=== PATIENT | female | born 1965 | race Caucasian/White ===

== ENCOUNTER 2017-08-12 13:16 | Outpatient (CLI) | payer OTHER | END 2017-08-12 21:24 | disposition home or self-care (01) | LOC: SMA 13:16 | PROVIDERS: ATTEND Specialist | DX: Z12.31 Encounter for screening mammogram for malignant neoplasm of breast (principal) | CPT/HCPCS: G0202 ==

== ENCOUNTER 2018-08-23 11:05 | Outpatient (CLI) | payer OTHER | END 2018-08-23 18:28 | disposition home or self-care (01) | LOC: SMA 11:05 | PROVIDERS: ATTEND Specialist | DX: Z12.31 Encounter for screening mammogram for malignant neoplasm of breast (principal) | CPT/HCPCS: 77067 ==

== ENCOUNTER 2019-09-12 13:46 | Outpatient (CLI) | payer OTHER | END 2019-09-12 21:22 | disposition home or self-care (01) | LOC: SMA 13:46 | PROVIDERS: ATTEND Specialist | DX: Z12.31 Encounter for screening mammogram for malignant neoplasm of breast (principal) | CPT/HCPCS: 77067 ==

== ENCOUNTER 2020-04-02 09:01 | Outpatient (CLI) | payer OTHER ==
[2020-04-02] MEDS ORDERED: GADOBENATE DIMEGLUMINE 529 MG/ML, 15 ML VIAL IV ONE (09:58)
== END 2020-04-02 20:00 | disposition home or self-care (01) ==
LOC: SMI 09:01
PROVIDERS: ATTEND Specialist
DX: R19.00 Intra-abdominal and pelvic swelling, mass and lump, unspecified site (principal); M47.817 Spondylosis without myelopathy or radiculopathy, lumbosacral region; R10.2 Pelvic and perineal pain
CPT/HCPCS: 72197; 74183; A9577

== ENCOUNTER 2020-04-11 11:23 | Day surgery (SDC) | payer OTHER, SELFPAY ==
[2020-04-07 10:03] LABS: EOSINOPHILS # (AUTO) 0.1 K/uL (0.0-0.4); EOSINOPHILS % (AUTO) 2.3 % (0.0-4.0); HEMATOCRIT 39.8 % (36-48); HEMOGLOBIN 13.8 g/dL (12.0-16.0); LYMPHOCYTES # (AUTO) 1.6 K/uL (1.0-5.5); LYMPHOCYTES % (AUTO) 32.4 % (20.5-51.5); MEAN CORPUSCULAR HEMOGLOBIN 34 pg (27-31); MEAN CORPUSCULAR HGB CONC 35 % (32-36); MEAN CORPUSCULAR VOLUME 98 fL (79.0-98.0); MONOCYTES # (AUTO) 0.4 K/uL (0.0-1.0); MONOCYTES % (AUTO) 8.8 % (1.7-9.3); NEUTROPHILS # (AUTO) 2.8 K/uL (1.8-7.7); NEUTROPHILS % (AUTO) 55.5 % (40.0-70.0); PLATELET COUNT (AUTO) 294 K/uL (130-430); RED BLOOD CELL COUNT(AUTO) 4.05 MIL/uL (4.2-6.2); RED CELL DISTRIBUTION WIDTH 12.5 % (9.0-15.0); WHITE BLOOD COUNT (AUTO) 5.1 K/uL (4.8-10.8)
[2020-04-07 10:14] LABS: BILIRUBIN,URINE NEGATIVE (NEGATIVE); BLOOD, URINE NEGATIVE (NEGATIVE); CLARITY/URINE CLEAR (CLEAR); COLOR,URINE YELLOW (YELLOW); GLUCOSE,URINE NEGATIVE (NEGATIVE); KETONES,URINE NEGATIVE (NEGATIVE); LEUKOCYTE ESTERASE ,URINE NEGATIVE (NEGATIVE); NITRITE, URINE NEGATIVE (NEGATIVE); PROTEIN URINE NEGATIVE (NEGATIVE); UROBILINOGEN,URINE 0.2 (0.2-1.0)
[2020-04-07 10:18] LABS: HCG,QUAL RESULT NEGATIVE (NEGATIVE)
[2020-04-11] VITALS (9 sets, daily range): BP systolic 123–153
[~2020-04-11] VITALS: Ht 167.6 cm; Wt 72.6 kg
[2020-04-11] MEDS ORDERED: ROCURONIUM BROMIDE 10 MG/ML (ZEMURON) IV ONE (13:40)
[2020-04-11] MEDS ORDERED: CEFAZOLIN 2 GM IVPB PREMIX 50 ML IV ONE (13:40)
[2020-04-11] MEDS ORDERED: NEOSTIGMINE METHYLSULFATE 1 MG/ML, 10 ML VIAL IVP ONE (13:40)
[2020-04-11] MEDS ORDERED: SUCCINYLCHOLINE CHLORIDE 20 MG/ML(QUELICIN) IVP ONE (13:40)
[2020-04-11] MEDS ORDERED: PROPOFOL 200MG/ 20ML VIAL (DIPRIVAN) IV ONE (13:40)
[2020-04-11] MEDS ORDERED: PHENYLEPHRINE HCL 10 MG/ML VIAL (NEOSYNEPHRINE) IV ONE (13:40)
[2020-04-11] MEDS ORDERED: GLYCOPYRROLATE 0.2 MG/ML VIAL IJ ONE (13:40)
[2020-04-11] MEDS ORDERED: WATER FOR IRRIGATION,STERILE 1,000 ML IRRIG.SOLN IR ONE (13:40)
[2020-04-11] MEDS ORDERED: ONDANSETRON HCL 4 MG/2 ML VIAL IVP ONE (13:40)
[2020-04-11] MEDS ORDERED: fentaNYL CITRATE 250 MCG/5 ML AMP IV ONE (13:40)
[2020-04-11] MEDS ORDERED: MIDAZOLAM HCL 5 MG/5 ML VIAL IVP ONE (13:40)
[2020-04-11] MEDS ORDERED: ROPIVACAINE HCL/PF 0.2% EPIDURAL 100 ML PLAST..BAG EP ONE (13:40)
[2020-04-11] MEDS ORDERED: BUPIVACAINE /PF 0.5% 30 ML VIAL INJ ONE (13:40)
[2020-04-11] MEDS ORDERED: SEVOFLURANE 15 MIN GAS INH ONE (13:40)
[2020-04-11] MEDS ORDERED: NS IRRIG SOLN 1000 ML IR ONE (13:40)
[2020-04-11] MEDS ORDERED: hydrALAZINE HCL 20 MG/ML VIAL IV PRN (14:30)
[2020-04-11] MEDS ORDERED: METOCLOPRAMIDE HCL 10 MG/2 ML VIAL IVP PRN (14:30)
[2020-04-11] MEDS ORDERED: HYDROmorphone 1 MG INJ. 1 MG/ML AMPUL IVP PRN ×2 (14:30→17:30)
[2020-04-11] MEDS ORDERED: ONDANSETRON HCL 4 MG/2 ML VIAL IVP PRN (15:15)
[2020-04-11] MEDS ORDERED: HYDROcodone/ACETAMIN 5-325 MG TAB (NORCO/ VICODIN) PO PRN (15:15)
[2020-04-11] MEDS ORDERED: OXYCODONE/ACETAMINOPHEN 5-325 TABLET PO PRN ×2 (15:15)
[2020-04-11] MEDS ORDERED: HYDROmorphone 1 MG INJ. 1 MG/ML AMPUL ONE ×2 (16:12→18:47)
[2020-04-11] MEDS: NACL 0.9% 1,000 ML IV SCH (18:52)
[2020-04-12] VITALS: BP_SYST 139
[2020-04-12] MEDS: NACL 0.9% 1,000 ML IV SCH (04:53)
[2020-04-12 08:30] VITALS: BP_SYST 171
[2020-04-12] MEDS: HYDROmorphone 2 MG/ML VIAL IVP PRN ×2 (09:59→14:24)
[2020-04-12 12:49] VITALS: BP_SYST 143
[2020-04-12 16:50] VITALS: BP_SYST 130
[2020-04-12 20:26] VITALS: BP_SYST 155
== END 2020-04-12 21:35 | disposition home or self-care (01) ==
LOC: SDS 11:23 → SMU 11:24 → SDS 04-12 21:35
PROVIDERS: ATTEND Specialist
DX: R10.2 Pelvic and perineal pain (principal); N80.0 Endometriosis of uterus; D25.2 Subserosal leiomyoma of uterus; R19.00 Intra-abdominal and pelvic swelling, mass and lump, unspecified site; Z79.899 Other long term (current) drug therapy; Z20.828 Contact with and (suspected) exposure to other viral communicable diseases
CPT/HCPCS: 36415; 58552; 71046; 81003; 84703; 85025; 88307; C1727; J0330; J0690; J1170 ×2; J2250; J2370; J2405; J2704; J2710; J2795; J3010; J3490 ×2; J7030; J7120; S2900; U0003; E0190

== ENCOUNTER 2022-02-28 08:43 | Outpatient (CLI) | payer OTHER | END 2022-02-28 20:57 | disposition home or self-care (01) | LOC: SMA 08:43 | PROVIDERS: ATTEND Specialist | DX: Z12.31 Encounter for screening mammogram for malignant neoplasm of breast (principal); N64.89 Other specified disorders of breast | CPT/HCPCS: 77067 ==

== ENCOUNTER 2023-03-19 11:06 | Outpatient (CLI) | payer OTHER | END 2023-03-19 19:24 | disposition home or self-care (01) | LOC: SMA 11:06 | PROVIDERS: ATTEND Specialist | DX: Z12.31 Encounter for screening mammogram for malignant neoplasm of breast (principal) | CPT/HCPCS: 77067 ==

== ENCOUNTER 2024-03-25 08:02 | Outpatient (CLI) | payer OTHER | END 2024-03-25 20:05 | disposition home or self-care (01) | LOC: SMA 08:02 | PROVIDERS: ATTEND Specialist | DX: Z12.31 Encounter for screening mammogram for malignant neoplasm of breast (principal); Z00.00 Encounter for general adult medical examination without abnormal findings | CPT/HCPCS: 77067 ==